=== PATIENT | male | born 1940 | race Asian ===

== ENCOUNTER 2017-04-16 22:37 | Observation (INO) | payer OTHER, MEDICAID ==
[~2017-04-16] VITALS: Ht 167.6 cm; Wt 68.0 kg
--- NOTE | 2017-04-16 23:04 | NUR ---
PT RESTING IN BED, AAOX4 WITH C/O SHARP LT CHEST PAIN 5/10 INTERMITANTLY LASTING 20-30 SEC X 1 DAY. PT CAME FROM URGENT CARE THAT HAD NOTED AN ABNORMAL EKG.
--- NOTE | 2017-04-16 23:15 | NUR ---
DR ORTIZ AT BEDSIDE.
[2017-04-16 23:40] LABS: BASOPHIL % 0.7 % (0-2); PLATELET COUNT 205 x10^3mcL (130-400)
[2017-04-16 23:49] LABS: CARBON DIOXIDE 28.3 mmol/L (21-32); CHLORIDE SERUM 104 mmol/L (98-107); CREATININE SERUM 1.4 mg/dL (0.7-1.3); GLUCOSE SERUM 104 mg/dL (74-106); POTASSIUM SERUM 4.4 mmol/L (3.5-5.1); SODIUM SERUM 140 mmol/L (136-145)
[2017-04-16] MEDS ORDERED: ASPIR 8181 MG PO (23:50)
[2017-04-16] MEDS ORDERED: LOT10 PO (23:50)
[2017-04-16] MEDS ORDERED: SIMVASTATIN20 M1 PO (23:50)
[2017-04-16] MEDS ORDERED: VITAMIN E-SYNT400 IU PO (23:51)
[2017-04-16] MEDS ORDERED: CALCIUM + D3 E1 EACH PO (23:51)
[2017-04-16 23:53] LABS: ALBUMIN 3.7 g/dL (3.4-5.0); ALKALINE PHOSPHATASE 62 U/L (46-116); ALT/SGPT 16 U/L (16-63); AST/SGOT 11 U/L (15-37); BILIRUBIN TOTAL 0.2 mg/dL (0.20-1.00); HDL CHOLESTEROL 38 mg/dL (40-60); LIPASE 144 IU/L (73-393); TOTAL PROTEIN, SERUM 7.2 g/dL (6.4-8.2); TRIGLYCERIDES 125 mg/dL (<150)
[2017-04-16 23:55] LABS: CHOLESTEROL 131 mg/dL (<200); CHOLESTEROL/HDL RATIO 3.4
[2017-04-16 23:56] LABS: RED CELL DISTRIBUTION WIDTH 15.7 % (11.5-14.5)
[2017-04-17 00:08] LABS: FREE T4 1.09 ng/dL (0.76-1.46); FREE THYROXINE INDEX 2.7 ug/dL (1.4-4.5); T4(THYROXINE) 7.5 ug/dL (4.7-13.3)
--- NOTE | 2017-04-17 00:15 | NUR ---
PT RESTING IN BED WITH NO SIGNS OF DISTRESS NOTED AT THIS TIME.
[2017-04-17 00:30] LABS: T3 TOTAL 1.39 ng/mL
[2017-04-17 00:35] LABS: rbc morphology (normal/abnorm) ABNORMAL (NORMAL)
[2017-04-17 00:36] LABS: ovalocyte/elliptocyte 1+
--- NOTE | 2017-04-17 01:45 | NUR ---
PT RESTING IN BED WITH EYES CLOSED WITH NO SIGNS OF DISTRESS NOTED AT THIS TIME.
--- NOTE | 2017-04-17 02:20 | NUR ---
REPORT GIVEN TO YANY LEVY.
[2017-04-17 02:45] VITALS: BP 115/78; BP 134/72
[2017-04-17 02:47] VITALS: BP 134/72
--- NOTE | 2017-04-17 03:03 | NUR ---
PATIENT CAME FROM ER AT 0226,PUT IN ROOM 204B AND MADE COMFORTABLE.PATIENT VOIDED FIRST,COLLECTED,WILL SEND TO LAB.TELE 25 SR.NO CHEST PAIN UPON ARRIVAL TO FLOOR.NO KNOWN ALLERGY.HAD O2 IN ER,DO NOT WANT TO WEAR IT,SATURATING WELL ROOM AIR 100%.SKIN INTACT.SCD ORDERED.WILL FOLLOW UP ADMIT ORDER,CALL LIGHT IN REACH.
[2017-04-17 03:33] LABS: microscopic required? YES; urine erythrocyte TRACE (NEGATIVE)
[2017-04-17 03:42] LABS: AMPHETAMINE QUAL UR NONE DETECTED (NEG <=1000)
--- NOTE | 2017-04-17 04:26 | NUR ---
PATIENT WANTING MSO4 HE WAS TALKING TO DR DOYLE,AND GIVEN WITHOUT ANY INCIDENT.QUIET ENVIRONMENT MAINTAINED.
--- NOTE | 2017-04-17 04:26 | NUR ---
PATIENT NOT LIKING SCD,SAYS IT MAKES HIM AWAKE.DISCONNECTED AT ONCE.
--- NOTE | 2017-04-17 05:52 | NUR ---
PATIENT I AND O MEASURED.NS AT 100 CC/ HOUR.WILL ENDORSE TO NEXT SHIFT.
--- NOTE | 2017-04-17 08:00 | NUR ---
ALERT/ORIENTED X3. TELE #25 = SR; HR = 89; DENIED CHEST PAIN NOW. NO RESP DISTRESS ON RA. NO ABD PAIN. NO N/V/D. TOLERATED CCHO DIET BREAKFAST. IVF OF NS 100CC/HR INFUISNG WELL TO LFA. IV SITE CLEAN. AMBULATORY. CALL LIGHT IN REACH.
--- NOTE | 2017-04-17 08:45 | NUR ---
DR. CHERRY AND MEDICAL TEAM MADE MORNING ROUND. PLAN OF CARE DISCUSSED WITH PATIENT, INCLUDED WITH TROPNIN MONITOR AND POSSIBLE D/C TO HOME IF TROPNIN NEGATIVE. PATIENT AGREED WITH PLAN OF CARE.
[2017-04-17 08:47] LABS: BASOPHIL % 0.3 % (0-2); PLATELET COUNT 176 x10^3mcL (130-400); RED CELL DISTRIBUTION WIDTH 15.9 % (11.5-14.5)
[2017-04-17 08:52] LABS: rbc morphology (normal/abnorm) ABNORMAL (NORMAL)
[2017-04-17 08:56] LABS: CALCIUM 7.9 mg/dL (8.5-10.1); CARBON DIOXIDE 28.5 mmol/L (21-32); CHLORIDE SERUM 111 mmol/L (98-107); CREATININE SERUM 1.2 mg/dL (0.7-1.3); GLUCOSE SERUM 89 mg/dL (74-106); MAGNESIUM 1.7 mg/dL (1.8-2.4); PHOSPHOROUS 3.2 mg/dL (2.5-4.9); POTASSIUM SERUM 4.4 mmol/L (3.5-5.1); SODIUM SERUM 148 mmol/L (136-145)
[2017-04-17 09:15] VITALS: BP 131/77
[2017-04-17 13:34] VITALS: BP 105/58
[2017-04-17 14:43] VITALS: BP 105/58
[2017-04-17] MEDS ORDERED: TOPROL XL25 MG PO (15:40)
--- NOTE | 2017-04-17 16:42 | NUR ---
TROPNIN NEGATIVE X3. DENIED CHEST PAIN. D/C TO HOME PER ORDER. INSTRUCTION GIVEN. IV D/C'D. CONDITION STABLE.
== END 2017-04-17 16:50 | disposition home or self-care (01) | DRG 391 ==
LOC: ED 22:37 → DU 04-17 01:43
PROVIDERS: Specialist; ADMIT Family Medicine
DX: K21.9 Gastro-esophageal reflux disease without esophagitis (principal); N17.0 Acute kidney failure with tubular necrosis; R73.03 Prediabetes; I10 Essential (primary) hypertension; E83.51 Hypocalcemia; E78.5 Hyperlipidemia, unspecified; Z68.24 Body mass index [BMI] 24.0-24.9, adult; Z87.11 Personal history of peptic ulcer disease; Z79.82 Long term (current) use of aspirin
CPT/HCPCS: 83880; 84439; C9113; G0378; J2270; J7030

== ENCOUNTER 2017-10-06 11:49 | Emergency (ER) | payer OTHER ==
[~2017-10-06] VITALS: Ht 167.6 cm; Wt 63.5 kg
[~2017-10-06 11:49] MED LIST: ASPIR 8181 MG PO; CALCIUM + D3 E1 EACH PO; LOT10 PO; SIMVASTATIN20 M1 PO; TOPROL XL25 MG PO; VITAMIN E-SYNT400 IU PO
[2017-10-06 12:59] VITALS: Ht 167.6 cm; Wt 63.5 kg
[2017-10-06 15:03] VITALS: BP 121/70
== END 2017-10-06 15:03 | disposition home or self-care (01) ==
LOC: ED 11:49
DX: S89.81XA Other specified injuries of right lower leg, initial encounter (principal); S40.012A Contusion of left shoulder, initial encounter; W20.8XXA Other cause of strike by thrown, projected or falling object, initial encounter; Y93.89 Activity, other specified; Y99.0 Civilian activity done for income or pay; Y92.89 Other specified places as the place of occurrence of the external cause

== ENCOUNTER 2020-10-22 10:49 | Emergency (ER) | payer OTHER ==
[~2020-10-22] VITALS: Ht 167.6 cm; Wt 68.0 kg
[2020-10-22 11:01] VITALS: Ht 167.6 cm; Wt 68.0 kg
[2020-10-22 11:25] VITALS: BP 142/74
== END 2020-10-22 11:25 | disposition home or self-care (01) ==
LOC: ED 10:49
DX: S46.911A Strain of unspecified muscle, fascia and tendon at shoulder and upper arm level, right arm, initial encounter (principal); I10 Essential (primary) hypertension; E78.00 Pure hypercholesterolemia, unspecified; V43.52XA Car driver injured in collision with other type car in traffic accident, initial encounter; Y93.I9 Activity, other involving external motion; Y92.488 Other paved roadways as the place of occurrence of the external cause; Y99.8 Other external cause status